=== PATIENT | female | born 1995 | race Caucasian/White ===

== ENCOUNTER → 2017-12-18 13:15 | Outpatient (CLI) | payer OTHER, SELFPAY ==
[2017-12-18 13:55] LABS: Cholesterol 170 mg/dL (200); Glucose 72 mg/dL (74-106); High Density Lipoprotein 45 mg/dL; Triglycerides 51 mg/dL; Very Low Density Lipoprotein 10 mg/dL (5-40)
[2017-12-24 15:39] LABS: HPV Reflexed? NOT INDICATED
[2018-01-01 13:15] LABS: HPV HC, High Risk Negative
== END ==
PROVIDERS: Visit Provider Obstetrics & Gynecology
DX: Z01.419 Encounter for gynecological examination (general) (routine) without abnormal findings (principal); Z13.228 Encounter for screening for other metabolic disorders; Z13.220 Encounter for screening for lipoid disorders
CPT/HCPCS: 80061; 82947; 87624; 88175; G0145

== ENCOUNTER 2020-05-19 18:03 | Emergency (ER) | payer BC, SELFPAY ==
[2020-05-19 18:05] VITALS: BP 143/109; PULSE 151; RESP 22; TEMP 36.8; O2SAT 99; BMI 27.4
--- NOTE | 2020-05-19 18:32 | CT_ITS ---
STUDY: CT ABDOMEN AND PELVIS WITHOUT CONTRAST REASON FOR EXAM: Female, 24 years old. Right flank pain RADIATION DOSAGE (If Supplied By Facility): CTDIvol = ( 8.55 ) mGy, DLP = ( 467.87 ) mGycm TECHNIQUE: Transaxial images were obtained from the dome of the diaphragm to the symphysis pubis without oral contrast, and without intravenous contrast. Sagittal and coronal images were reconstructed. Individualized dose optimization techniques were used for this CT. COMPARISON: June 12, 2011 FINDINGS: The lower pole of the kidney contains a 12 mm small staghorn calculus. There are no ureteral stones or hydronephrosis. Left collecting system is clear. Remainder of solid organs are intact. Ventricular peritoneal shunt tubing is located in the upper abdomen. There is no intestinal obstruction. There is inspissated stool in the rectum and sigmoid. There is limited spina bifida at S1 and S2. CT/Abdomen/Pelvis without Cont IMPRESSION: 1. Right renal lower pole nonobstructing calyceal 12 mm calculus. Urology referral is advised. 2. Colonic dysmotility. Electronically Signed: Norah Platt, at 21:33 EDT Tel , Service support ,
--- NOTE | 2020-05-19 18:32 | ED.VIS.GEN ---
History of Present Illness Chief Complaint: Complaint Informant: Patient, Family Onset: Days - 4 days Context: Gradual Onset Current Severity: Mild Maximum Severity: Moderate Narrative: Patient presents with right flank pain for the past 4 days. She describes it as a burning sensation around her abdomen. She has not noted any fever. She does have a history of spina bifida and self caths. She states her urine has not been cloudy or particularly strong odor. She denies history of kidney stones. She has not had diarrhea. She did have one episode of vomiting last night but states she think she got herself worked up worrying about her abdominal pain. She did have some leftover Bactrim at home that she took yesterday. - Past Medical History (1) Spina bifida Status: Chronic Past Medical History - Allergies and Home Meds Allergies/Adverse Reactions: Allergies azithromycin [From Zithromax] Allergy (Verified 05/19/20 18:05) Rash clindamycin [From Cleocin] Adverse Reaction (Verified 05/19/20 18:05) Other Primary Care Physician: Ivan Yin MD [STAFF PHYSICIAN] - Prior records reviewed: Yes Smoking Status: Never smoker Review of Systems General: Denies: Chills, Fever Eyes: Denies: Visual changes - bilaterally Cardiovascular: Denies: Chest pain Respiratory: Denies: Dyspnea, Cough Gastrointestinal: Reports: Abdominal pain, Nausea, Vomiting. Denies: Diarrhea Genitourinary: Reports: - - Self caths Musculoskeletal: Reports: Back pain - Right flank. Denies: Extremity Pain Skin: Denies: Rash Neurological: Denies: Headache Hematologic: Denies: Easy bruising, Easy bleeding Allergy: Denies: Uticaria Physical Exam Vital Signs/Narrative: Vital Signs Temp Pulse Resp BP Pulse Ox 05/19/20 18:05 98.3 F 151 H 22 H 143/109 H 99 Inital Vital Signs reviewed: Yes General: Well nourished, Well developed Head: Normocephalic ENT: Moist mucous membranes Neck: Supple Cardiovascular: Tachycardia - Heart rate in the 120s at the time of my examination. Respiratory: No distress, CTA bilaterally Abdomen: Soft, Tender - Mild right lower quadrant tenderness., Hypoactive bowel sounds Back: Negative for: CVA tenderness Skin: Normal color Neurological: Alert, Oriented x3 Psychological: Normal affect Diagnostic/Tx/Re-eval Impressions Abdomen/Pelvis CT 05/19/20 18:32 IMPRESSION: 1. Right renal lower pole nonobstructing calyceal 12 mm calculus. Urology referral is advised. 2. Colonic dysmotility. Electronically Signed: Norah Platt, at 21:33 EDT Tel , Service support , 05/19/20 18:32 Abdomen/Pelvis without Cont [CT] Stat Laboratory Results 05/19/20 05/19/20 05/19/20 19:34 20:10 20:10 WBC 7.6 RBC 4.57 Hgb 13.4 Hct 41.5 MCV 90.8 MCH 29.3 MCHC 32.3 RDW Std Deviation 41.0 RDW Coeff of Jude 12.5 Plt Count 290 MPV 11.3 Immature Gran % (Auto) 0.300 Neut % (Auto) 64.1 Lymph % (Auto) 22.9 [place] % (Auto) 10.9 H Eos % (Auto) 1.3 Baso % (Auto) 0.5 Absolute Neuts (auto) 4.9 Absolute Lymphs (auto) 1.74 Nucleated RBC % 0 Sodium 139 Potassium 4.1 Chloride 110 H Carbon Dioxide 24.0 Anion Gap 5 BUN 15 Creatinine 0.98 Estim Creat Clear Calc 90.06 Est GFR (MDRD) Af Amer 90 Est GFR (MDRD) Non-Af 74 BUN/Creatinine Ratio 15.3 Glucose 96 Calcium 9.3 Serum , Qual Urine Color Yellow Urine Clarity Sl. Cloudy Urine pH 6.0 Ur Specific [place] 1.015 Urine Protein 15 H Urine Glucose (UA) Normal Urine Ketones Negative Urine Occult Blood 150 H Urine Nitrite Negative Urine Bilirubin Negative Urine Urobilinogen Normal Ur Leukocyte Esterase 500 H Urine RBC 0 SEEN Urine WBC 25-50 SEEN Ur Squamous Epith Cells 0-5 SEEN Urine Bacteria 0 SEEN Urine Mucus 0 SEEN 05/19/20 20:10 WBC RBC Hgb Hct MCV MCH MCHC RDW Std Deviation RDW Coeff of Jude Plt Count MPV Immature Gran % (Auto) Neut % (Auto) Lymph % (Auto) [place] % (Auto) Eos % (Auto) Baso % (Auto) Absolute Neuts (auto) Absolute Lymphs (auto) Nucleated RBC % Sodium Potassium Chloride Carbon Dioxide Anion Gap BUN Creatinine Estim Creat Clear Calc Est GFR (MDRD) Af Amer Est GFR (MDRD) Non-Af BUN/Creatinine Ratio Glucose Calcium Serum , Qual NEGATIVE Urine Color Urine Clarity Urine pH Ur Specific [place] Urine Protein Urine Glucose (UA) Urine Ketones Urine Occult Blood Urine Nitrite Urine Bilirubin Urine Urobilinogen Ur Leukocyte Esterase Urine RBC Urine WBC Ur Squamous Epith Cells Urine Bacteria Urine Mucus - Medical Decision Making Patient was given IV fluids here. Test results discussed with patient and mother at bedside. Urine does show white cells but no bacteria. She is already taken 4 doses of Bactrim at home and this may give us a false negative urine. Urine culture will be sent. She does have evidence of a rather large kidney stone in the kidney. We discussed this. She will follow-up with urology as needed. She also has evidence of constipation with considerable stool on the right side of her abdomen. She has a bowel regimen that she follows at home secondary to her spina bifida and will do this. ED Disposition - Plan for ED Patient: Disposition: Home or Assisted Living Diagnosis: Right flank pain Instructions: ED Flank Pain Uncertain Cause Referrals: Doroteo Aguiar MD [STAFF PHYSICIAN] - As Needed
[2020-05-19 19:13] VITALS: BP 119/74; PULSE 78; RESP 15; TEMP 37.2; O2SAT 99
[2020-05-19 19:40] LABS: Bacteria 0 SEEN /hpf (None Seen); Mucous, Urine 0 SEEN /hpf (<or=2+); Red Blood Cells-Urine 0 SEEN /hpf (0-5)
[2020-05-19 19:43] LABS: Color, Urine Yellow (Yellow); Glucose, Dipstick Normal (Normal); Ketone-Dipstick Negative (Negative); Leukocyte Esterase-Dipstick 500 /ul (Negative); Nitrite-Dipstick Negative (Negative); Occult Blood-Urine 150 /ul (Negative); Protein-Dipstick 15 mg/dl (Negative); Specific Gravity, Urine 1.015 (1.002-1.030); Urine Bilirubin Dipstick Negative (Negative); Urine Clarity Sl. Cloudy (Clear); Urine Urobilinogen Normal (Normal)
[2020-05-19] MEDS: 0.9% Normal Saline 1,000 ML 150 ML IV (19:50)
[2020-05-19 20:00] VITALS: BP 130/99; PULSE 114; RESP 15; TEMP 37.2; O2SAT 100
[2020-05-19 20:14] LABS: Squamous Epithelial Cells - UA 0-5 SEEN /hpf (5-10); White Blood Cells 25-50 SEEN /hpf (0-5)
[2020-05-19 20:18] LABS: Absolute Lymphocyte Count 1.74 X10^3/uL (0.83-4.51); Absolute Neutrophil Count 4.9 X10^3/uL (2.0-7.7); Basophil# 0.04 X10^3/uL; Basophil% 0.5 % (0-1); Eosinophils% 1.3 % (0-5); Hematocrit 41.5 % (37-47); Hemoglobin 13.4 g/dL (12.0-15.0); Lymphocyte # 1.74 X10^3/ul (4.0); Lymphocyte % 22.9 % (19-41); Mean Corp Hgb Conc 32.3 g/dL (32-36); Mean Corpuscular Hgb 29.3 pg (27.0-32.0); Mean Corpuscular Volume 90.8 fL (81-99); Mean Platelet Vol. 11.3 fl (6.2-12.0); Monocyte# 0.83 X10^3/uL; Monocyte% 10.9 % (0-10); NRBC Flagged by Analyzer 0 % (0-5); Neutrophil # 4.86 X10^3/uL (2.7-7.7); Neutrophil % 64.1 % (47-70); Platelet Count 290 K/mm3 (150-450); RBC Distribution Width CV 12.5 % (11.6-14.6); Red Blood Count 4.57 M/mm3 (4.2-5.4); White Blood Count 7.6 K/mm3 (4.4-11.0)
[2020-05-19 20:28] LABS: Internal QC Validated? YES +Cl - CLEAR BKGD; Pregnancy, Serum, hCG Quali. NEGATIVE Negative
[2020-05-19 20:31] LABS: Anion Gap 5 (5-15); BUN 15 mg/dL (7-18); BUN/Creat Ratio 15.3 RATIO (10-20); Calcium,Total 9.3 mg/dL (8.5-10.1); Chloride 110 mmol/L (98-107); Creatinine, Serum 0.98 mg/dL (0.55-1.02); EST Glomerular Filtration Rate 74 mL/min (>60); Est Glom Filt Rate - Afr Amer 90 mL/min (>60); Estimated Creatinine Clearance 90.06 ml/min; Glucose 96 mg/dL (74-106); Potassium 4.1 mmol/L (3.5-5.1); Sodium Level 139 mmol/L (136-145)
[2020-05-19 21:00] VITALS: BP 131/102; PULSE 119; RESP 16; TEMP 37; O2SAT 100
[2020-05-19 21:55] VITALS: BP 135/90; PULSE 112; RESP 16; O2SAT 100
== END 2020-05-19 22:01 | disposition home or self-care (01) ==
PROVIDERS: Emergency Provider Emergency Medicine; PCP Family Medicine
DX: R10.9 Unspecified abdominal pain (principal)
CPT/HCPCS: 36415; 74176; 80048; 81001; 84703; 85025; 87086; 87088; 87186; 96360; 96361; 99285; J7030; A4216

== ENCOUNTER 2020-05-30 10:43 | Day surgery (SDC) | payer BC, SELFPAY ==
[2020-05-30] VITALS (7 sets, daily range): BP systolic 112–128; BP diastolic 65–78; PULSE 93–107; RESP 16; TEMP 36.3–37.1; O2SAT 98–100; BMI 27.5
[2020-05-30 11:17] LABS: Internal QC Validated? YES +Cl - CLEAR BKGD; Pregnancy, Urine Negative Negative
[2020-05-30] MEDS: Lactated Ringers 1,000 ML 100 ML IV (11:32)
[2020-05-30] MEDS: Cefazolin 2 GM in 0.9% Normal Saline 100 ML IV (14:24)
--- NOTE | 2020-05-30 14:31 | PCM.HP.STD ---
History of Present Illness Date of Admission: 05/30/20 Chief Complaint: Right kidney stone The patient is a 24 year old female with a history of spina bifida who presents with a right kidney stone plan for treatment of the stone with stent and shockwave lithotripsy Past Medical History Past Medical History (Chronic Problems): Chronic Problems Spina bifida (Chronic) Allergies azithromycin [From Zithromax] Allergy (Verified 05/19/20 18:05) Rash latex Allergy (Verified 05/23/20 13:22) Hives clindamycin [From Cleocin] Adverse Reaction (Verified 05/19/20 18:05) Other Home Medications: Ambulatory Orders Medication Instructions Recorded Bupropion HCl [Bupropion Xl] 300 mg PO DAILY 05/19/20 Smz/Tmp Ds [Bactrim Ds] 1 tab PO BID 05/19/20 Surgical History: no surgical history Smoking Status: Never smoker Tobacco Use: Non-smoker Review of Systems Constitutional: Denies: Chills, Fever, Weight Change HEENT: Denies: Head Aches, Sinus Congestion, Sinus Drainage Cardiovascular: Denies: Chest Pain, Palpitations Respiratory: Denies: Cough, Shortness of breath at rest, Sputum production Gastrointestinal: Denies: Abdominal Pain, Nausea, Vomiting Genitourinary: Denies: Dysuria Musculoskeletal: Denies: Joint Pain, Joint Tenderness Skin: Denies: Rash, Wounds Neurological: Denies: Numbness, Tingling, Focal weakness Psychiatric: Denies: Anxiety, Depression, Homicidal Ideations, Suicidal Ideations Hematologic/ Lymphatic: Denies: Easy Bruising, Easy Bleeding VTE Information - Inpt Only VTE Present on Admission: No VTE Mechan Device Prophylaxis: SCD's - Physical Exam Vitals/I&O's: Vital Signs Temp Pulse Resp BP Pulse Ox 97.7 F L 95 16 116/78 99 05/30/20 11:14 05/30/20 11:14 05/30/20 11:14 05/30/20 11:14 05/30/20 11:14 Oxygen Delivery Method Room Air Weight: 82.2 kg Body Mass Index (BMI) 27.5 General: Alert, Oriented x3, Cooperative HEENT: Atraumatic, PERRLA, EOMI, Normocephalic Neck: Supple, No JVD, Negative Carotid Bruits Lungs: Clear to auscultation, Normal air movement Cardiovascular: Regular rate, No murmurs Abdomen: Bowel Sounds Present, Soft, Non Tender Extremities: No edema, Capillary Refill Less than 3 Seconds Skin: No rashes, No breakdown Musculoskeletal: No Tenderness to Palpation of Joints or Extremities Neurological: Cranial nerves II-XII grossly intact Psych/Mental Status: Normal Affect, Appropriate Laboratory Results 05/30/20 11:00: Urine Test Negative Current Medications Acetaminophen (Tylenol) 650 mg PO Q4H PRN PRN PRN Reason: Pain Score 1-5/10 Lactated Ringer's () 1,000 mls @ 100 mls/hr IV .Q10H SARA Last Admin: 05/30/20 11:32 Dose: 100 mls/hr Documented by: Ketorolac Tromethamine (Toradol (Bkc)) 15 mg IV X1 ONE Stop: 05/30/20 14:31 Metoclopramide HCl (Reglan) 10 mg IV X1 PRN PRN Reason: NAUSEA/VOMITING Morphine Sulfate () 2 mg IV Q2H PRN PRN PRN Reason: Pain Score 6-10/10 Assessment/Plan Plan for treatment of the right kidney stone
--- NOTE | 2020-05-30 14:33 | PCM.DC.URO ---
Discharge Diet: No Restrictions, Light diet - advance as tolerated Discharge Activity: Return to Normal Activity, May Not Drive - for 2 days., May not drive while taking narcotic pain medications. Additional Activity Instructions:: Please be aware that pain medications may cause nausea. You should typically eat light foods as you take your pain medication. Pain medication may cause constipation, if this is a problem for you, please discuss with your doctor. Allergies/Adverse Reactions: Allergies azithromycin [From Zithromax] Allergy (Verified 05/19/20 18:05) Rash latex Allergy (Verified 05/23/20 13:22) Hives clindamycin [From Cleocin] Adverse Reaction (Verified 05/19/20 18:05) Other Medications to take at Discharge Bupropion HCl [Bupropion Xl] 300 mg PO DAILY 05/19/20 RX: Smz/Tmp Ds [Bactrim Ds] 1 tab PO BID 05/19/20 Primary Care Physician: Glenna Méndez PA-C [Primary Care Provider] - Test Results: Test results from this visit will be discussed in further detail at your follow-up appointment, if applicable. Please Follow Up With: Doroteo Aguiar MD When: please call to make an appointment.
--- NOTE | 2020-05-30 15:31 | PCM.OPRPT ---
Report of Operation Date of Procedure: 05/30/20 Pre-Operative Diagnosis: Right renal calculi Post-Operative Diagnosis: Same Surgery/Procedure Performed:: Cystoscopy, right retrograde pyelogram right stent placement and right extracorporeal shock wave lithotripsy Description of Surgical Findings:: 24-year-old female with a history of spina bifida was taken back to the operating room after smooth induction of anesthesia she was placed in dorsolithotomy position the urethra vaginally are prepped and draped in usual sterile fashion went of the bladder with a 21 [place] rigid cystourethroscope was able to identify the right ureteral orifice it was fairly patulous and open advanced a [place] catheter up into the right kidney performed a retrograde pyelogram he could see the stone in the lower pole the right kidney we then positioned the lithotripter table underneath the right kidney and proceeded with shockwave lithotripsy and delivered a total of 2500 shockwaves to the stone at a rate of 90/min total 2005 shock waves were delivered at the end of the procedure we did another retrograde pyelogram. The stones are broken up completely. Very soft looking stone. I then advanced a wire up into the kidney over the wire I then advanced a stent once the stent was in place and pulled the wire the stent: The kidney bladder good position we will see him next week to get the stent out with a cystoscopy. On retrograde pyelogram see the contrast going up to the kidney until the kidney nicely can see the stone the lower pole the kidney. Type of Anesthesia:: General Drains: stent right - Admit VTE Documentation VTE Present on Admission: No VTE Mechan Device Prophylaxis: SCD's
[2020-05-30] MEDS: Ketorolac 15 MG/ML Vial IV (16:15)
[2020-05-30] MEDS: HYDROcodone Bitartrate/Apap 5/325 Tablet PO (17:04)
== END 2020-05-30 17:57 | disposition home or self-care (01) ==
LOC: SDC 10:44 → AC 10:47
PROVIDERS: Anesthesiology; PCP Family Medicine; Referring Provider Urology; Visit Provider Urology
PROC: (CPT 50590; principal; 2020-05-30 12:55)
DX: N20.0 Calculus of kidney (principal); Q05.9 Spina bifida, unspecified; Z79.899 Other long term (current) drug therapy
CPT/HCPCS: 50590; 52332; 81025; 87635; G2023; J7120; C1769; C2617; J2405; U0003

== ENCOUNTER → 2020-09-13 13:43 | Outpatient (CLI) | payer BC, SELFPAY ==
[2020-05-30 11:14] VITALS: BMI 27.5
--- NOTE | 2020-09-13 14:05 | RAD_ITS ---
STUDY: X-RAY - ABDOMEN/PELVIS REASON FOR EXAM: Female, 25 years old. right sided flank pain TECHNIQUE: Single AP view of the abdomen / pelvis. COMPARISON: None. FINDINGS: Excluded lung bases. There is an unremarkable bowel gas pattern. Moderate fecal retention of the right more than left colon. There is no demonstrated free abdominal air. The visualized liver, spleen and kidneys are grossly normal in size and morphology. Normal soft tissue structures. Normal visualized osseous structures. RAD/Abdomen Single View IMPRESSION: Moderate fecal retention throughout the colon, right more than left. Electronically Signed: Jesus Maza MD ([place]) at 9:16 EST , Service support ,
== END ==
PROVIDERS: PCP Family Medicine; Referring Provider Urology; Visit Provider Urology
DX: N20.0 Calculus of kidney (principal)
CPT/HCPCS: 74018; 87086; 87088; 87186

== ENCOUNTER 2020-09-13 23:41 | Emergency (ER) | payer BC, SELFPAY ==
[2020-05-30 11:14] VITALS: BMI 27.5
[2020-09-13 23:43] VITALS: BP 156/102; PULSE 126; RESP 16; TEMP 36.2; O2SAT 99; BMI 25.0
[2020-09-14] MEDS: Morphine 4 MG/ML Syringe IM
--- NOTE | 2020-09-14 00:01 | ED.DCSUM_ITS ---
History of Present Illness Chief Complaint: Flank Pain Informant: Patient - Abdominal Pain/Flank Pain Onset: Days - 2 Context: Sudden Onset Timing: Continuous, Waxes and wanes Quality: Aching Location: Right Flank Current Severity: Severe Maximum Severity: Severe Worsened by: Nothing Relieved by: Nothing - Nausea/Vomiting/Emesis GI Symptom: Negative for: Nausea, Vomiting - Diarrhea/Melena/Hematochezia GI Symptom: Negative for: Diarrhea, Melena, Hematochezia Associated Symptoms: Negative for: Dysuria, Frequency, Hematuria, Urgency Narrative: Patient had sudden onset of relatively mild right flank pain 2 days ago it has progressively worsened and has been colicky, similar in quality to a kidney stone she had earlier in the year that she needed lithotripsy for. She sees Dr. Aguiar, she spoke with him earlier today and had a KUB and a urine culture, the interpretations of both of those are still pending. She comes in late tonight because her pain became significantly worse while at work despite taking ibuprofen earlier. She denies any fevers, chills, nausea, she has spina bifida and self catheterizes, has seen some sediment lately, and has altered sensation below the waist that is unchanged. Pain radiates down into her right groin now. - Past Medical History (1) Kidney stones Status: Chronic (2) Spina bifida Status: Chronic Past Medical History - Allergies and Home Meds Allergies/Adverse Reactions: Allergies azithromycin [From Zithromax] Allergy (Verified 09/13/20 23:45) Rash latex Allergy (Verified 09/13/20 23:45) Hives clindamycin [From Cleocin] Adverse Reaction (Verified 09/13/20 23:45) Other Primary Care Physician: Doroteo Aguiar MD [STAFF PHYSICIAN] - As soon as possible Surgical History: - - Lithotripsy Smoking Status: Never smoker Review of Systems General: Denies: Chills, Fever, Sweats Eyes: Denies: Visual changes - bilaterally, Diplopia ENT: Denies: Bilateral ear pain, Rhinorrhea, Sore throat Cardiovascular: Denies: Chest pain, Palpitations Respiratory: Denies: Dyspnea, Cough, Dyspnea on exertion Gastrointestinal: Reports: Abdominal pain. Denies: Nausea, Vomiting, Diarrhea, Melena, Hematochezia Genitourinary: Denies: Dysuria, Hematuria, Frequency Musculoskeletal: Reports: Back pain. Denies: Extremity Pain Skin: Denies: Rash, Wounds Neurological: Reports: Numbness - Chronic unchanged. Denies: Headache, Weakness Physical Exam Vital Signs/Narrative: Vital Signs Temp Pulse Resp BP Pulse Ox 09/13/20 23:43 97.1 F L 126 H 16 156/102 H 99 Inital Vital Signs reviewed: Yes General: Well nourished, Well developed, No Acute Distress - Well-appearing Head: Normocephalic, Atraumatic Eyes: Perrl, EOMI ENT: Moist mucous membranes, No rhinorrhea Neck: Supple, Nontender Cardiovascular: Regular rate, Regular rhythm, No murmurs, Tachycardia Respiratory: No distress, CTA bilaterally, Chest nontender Abdomen: Soft, Nontender, Nondistended, Normal bowel sounds Back: Nontender, Normal Inspection. Negative for: CVA tenderness Extremities: Nontender, No edema Skin: Normal color, No rash, No Trauma Neurological: Alert, Oriented x3, Cranial nerves II-XII grossly intact Psychological: Normal affect, Normal Mood Diagnostic/Tx/Re-eval - Medical Decision Making I reviewed the patient's KUB from earlier today, it has not been interpreted by radiology yet. 2 views on my interpretation shows a nonspecific bowel gas patte rn without free air, and what appears to be an 8.7 mm wide stone at or near the proximal right ureter. Certainly this would explain the patient's pain. Do not think she needs further emergent studies right now given all of this, we got her symptoms under control with IM morphine, followed by Toradol and some oral [place], and prescribed her [place] to use at home as needed. On reevaluation, her tachycardia is resolved and I suspect it was due to her pain. She will follow- up with her urologist, and we discussed reasons to return. ED Disposition - Plan for ED Patient: Disposition: Home or Assisted Living Diagnosis: Ureterolithiasis, Renal colic on right side Instructions: ED Renal Stone w Colic Prescriptions: Hydrocodone Bitart/Apap 5-325 [[place] 5MG-325MG] 1 tab PO Q4H PRN PRN 3 Days #15 tab PRN Reason: Pain Prescription Printed Referrals: Doroteo Aguiar MD [STAFF PHYSICIAN] - As soon as possible
[2020-09-14] MEDS: HYDROcodone Bitartrate/Apap 5/325 Tablet PO (01:09)
[2020-09-14] MEDS: Ketorolac 30 MG/ML Syringe IM (01:10)
[2020-09-14 01:50] VITALS: RESP 16
== END 2020-09-14 01:51 | disposition home or self-care (01) ==
LOC: ED 09-14 00:34
PROVIDERS: Emergency Provider Emergency Medicine; PCP Family Medicine
DX: N20.1 Calculus of ureter (principal)
CPT/HCPCS: 96372; 99283

== ENCOUNTER 2020-09-17 12:53 | Inpatient (IN) | payer BC, SELFPAY ==
[2020-09-17] VITALS (12 sets, daily range): BP systolic 92–134; BP diastolic 64–91; PULSE 113–148; RESP 16–20; TEMP 36.2–37.3; O2SAT 95–100; BMI 24.7
--- NOTE | 2020-09-17 13:26 | ED.VIS.GEN ---
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 She does get frequent urinary tract infections. Old records were reviewed. May of this year she had a scan which revealed a 12 mm renal calculi inferior pole. She had a KUB on September 13 which revealed an 8 mm stone on the right. She presents with nausea. She denies fever or chills. She denies cardiac or respiratory symptoms. She states she is presently on her menstrual cycle. She did have a documented temperature of 100.7 ?F on Thursday. She states she does not feel well. She has no other complaints. Prior similar symptoms: Yes Recent Illness/Hospitalization: Yes - Past Medical History (1) History of hydrocephalus as a child Status: Acute (2) Kidney stones Status: Chronic (3) Spina bifida Status: Chronic Past Medical History - Allergies and Home Meds Allergies/Adverse Reactions: Allergies azithromycin [From Zithromax] Allergy (Verified 09/17/20 12:54) Rash latex Allergy (Verified 09/17/20 12:54) Hives clindamycin [From Cleocin] Adverse Reaction (Verified 09/17/20 12:54) Other Primary Care Physician: Glenna Méndez PA-C [Primary Care Provider] - Prior records reviewed: Yes Surgical History: - - Lithotripsy, PHARMACEUTICAL LABORATORY TECHNICIAN shunt, tracheostomy and surgery for spina bifida Lives: Alone Smoking Status: Never smoker Alcohol: None Drugs: None Review of Systems General: Reports: Chills, Fever, Malaise. Denies: Subjective, Sweats, Weight loss ENT: Denies: Rhinorrhea, Sore throat Cardiovascular: Denies: Chest pain, Palpitations Respiratory: Denies: Dyspnea, Cough, Dyspnea on exertion Gastrointestinal: Reports: Nausea. Denies: Abdominal pain, Vomiting, Diarrhea Genitourinary: Reports: - - Patient self caths because of spina bifida. Denies: Dysuria, Hematuria, Frequency Musculoskeletal: Reports: Back pain. Denies: Myalgias, Arthralgias, Neck pain Skin: Denies: Rash, Wounds Neurological: Denies: Headache, Weakness Hematologic: Denies: Easy bruising, Easy bleeding Physical Exam Vital Signs/Narrative: Vital Signs Temp Pulse Resp BP Pulse Ox 09/17/20 12:55 97.4 F L 148 H 17 134/91 H 95 Inital Vital Signs reviewed: Yes General: Well nourished, Well developed, No Acute Distress Head: Normocephalic, Atraumatic Eyes: Perrl, EOMI. Negative for: Pale conjunctiva, Scleral icterus ENT: Moist mucous membranes, No rhinorrhea Neck: Supple, Nontender, No lymphadenopathy, No JVD, - - PHARMACE[employer]ORATORY TECHNICIAN shunt is palpable right anterior neck Cardiovascular: Regular rhythm, No murmurs, Tachycardia Respiratory: No distress, CTA bilaterally Abdomen: Soft, Nontender, Nondistended, Normal bowel sounds Rectal: Deferred Back: Nontender, Normal Inspection Extremities: Nontender, No edema Skin: Normal color, No rash Neurological: Alert, Oriented x3, Cranial nerves II-XII grossly intact Psychological: Normal affect Diagnostic/Tx/Re-eval 09/17/20 15:10 Abdomen/Pelvis without Cont [CT] Stat Laboratory Results 09/17/20 09/17/20 09/17/20 13:10 13:40 13:40 WBC RBC Hgb Hct MCV MCH MCHC RDW Std Deviation RDW Coeff of Jude Plt Count MPV Immature Gran % (Auto) Neut % (Auto) Lymph % (Auto) [place] % (Auto) Eos % (Auto) Baso % (Auto) Absolute Neuts (auto) Absolute Lymphs (auto) Nucleated RBC % Sodium 136 Potassium 3.5 Chloride 101 Carbon Dioxide 24.0 Anion Gap 11 BUN 13 Creatinine 1.14 H Estim Creat Clear Calc 76.76 Est GFR (MDRD) Af Amer 75 Est GFR (MDRD) Non-Af 62 BUN/Creatinine Ratio 11.4 Glucose 100 Calcium 9.9 Serum , Qual NEGATIVE Urine Color Yellow Urine Clarity Turbid Urine pH 6.0 Ur Specific [place] 1.020 Urine Protein 100 H Urine Glucose (UA) Normal Urine Ketones 150 H Urine Occult Blood 250 H Urine Nitrite Negative Urine Bilirubin 1 H Urine Urobilinogen 1 H Ur Leukocyte Esterase 500 H Urine RBC 50-100 SEEN Urine WBC 50-100 SEEN Ur Squamous Epith Cells 0-5 SEEN Urine Bacteria 3+ Urine Mucus 0 SEEN 09/17/20 13:40 WBC 13.5 H RBC 5.11 Hgb 14.7 Hct 45.5 MCV 89.0 MCH 28.8 MCHC 32.3 RDW Std Deviation 42.4 RDW Coeff of Jude 12.9 Plt Count 305 MPV 11.3 Immature Gran % (Auto) 0.400 Neut % (Auto) 84.6 H Lymph % (Auto) 5.8 L [place] % (Auto) 8.4 Eos % (Auto) 0.7 Baso % (Auto) 0.1 Absolute Neuts (auto) 11.4 H Absolute Lymphs (auto) 0.78 L Nucleated RBC % 0 Sodium Potassium Chloride Carbon Dioxide Anion Gap BUN Creatinine Estim Creat Clear Calc Est GFR (MDRD) Af Amer Est GFR (MDRD) Non-Af BUN/Creatinine Ratio Glucose Calcium Serum , Qual Urine Color Urine Clarity Urine pH Ur Specific [place] Urine Protein Urine Glucose (UA) Urine Ketones Urine Occult Blood Urine Nitrite Urine Bilirubin Urine Urobilinogen Ur Leukocyte Esterase Urine RBC Urine WBC Ur Squamous Epith Cells Urine Bacteria Urine Mucus Urine is consistent with infection with 50-100 RBCs and 50-100 WBCs with 3+ bacteria. KUB was obtained on 111 and I agree there is a stone. Measured the stone in its 10.4 x 16 mm and appears to be intrarenal. Because patient having significant pain will obtain a CT to see if there is obstruction especially since she has an infection. Received 2 g of Rocephin IV piggyback. Lactate was ordered as well as blood cultures to evaluate for severe sepsis. - Medical Decision Making Patient urine appears turbid. Concerned she may have an infection. CBC BMP was obtained. KUB was obtained to see if there has been movement of the stone. T of the abdomen and pelvis without contrast reveals significant hydronephrosis due to a very proximal 12.4 x 6.0 ureteral stone. Since she has pain with obstruction and infection urology was contacted. He will admit patient to his service. Her lactate is pending. If lactate greater than [address] Dr. Muller was giving orders to nurse for admission. He plans on taken to surgery to have a stent placed. ED Disposition - Plan for ED Patient: Disposition: Acute Care Hospital [facility] Diagnosis: Hydronephrosis with urinary obstruction due to ureteral calculus, Urinary tract infection, Sepsis Referrals: Glenna Méndez PA-C [Primary Care Provider] -
[2020-09-17 13:30] LABS: Mucous, Urine 0 SEEN /hpf (<or=2+)
[2020-09-17 13:36] LABS: Color, Urine Yellow (Yellow); Glucose, Dipstick Normal (Normal); Leukocyte Esterase-Dipstick 500 /ul (Negative); Nitrite-Dipstick Negative (Negative); Occult Blood-Urine 250 /ul (Negative); Protein-Dipstick 100 mg/dl (Negative); Urine Clarity Turbid (Clear); Urine Urobilinogen 1 mg/dl (Normal)
[2020-09-17 13:50] LABS: Urine Bilirubin Dipstick 1 mg/dL (Negative)
[2020-09-17 13:51] LABS: Absolute Lymphocyte Count 0.78 X10^3/uL (0.83-4.51); Absolute Neutrophil Count 11.4 X10^3/uL (2.0-7.7); Basophil# 0.02 X10^3/uL; Basophil% 0.1 % (0-1); Eosinophils% 0.7 % (0-5); Hematocrit 45.5 % (37-47); Hemoglobin 14.7 g/dL (12.0-15.0); Lymphocyte # 0.78 X10^3/ul (4.0); Lymphocyte % 5.8 % (19-41); Mean Corp Hgb Conc 32.3 g/dL (32-36); Mean Corpuscular Hgb 28.8 pg (27.0-32.0); Mean Platelet Vol. 11.3 fl (6.2-12.0); Monocyte# 1.14 X10^3/uL; Monocyte% 8.4 % (0-10); NRBC Flagged by Analyzer 0 % (0-5); Neutrophil # 11.44 X10^3/uL (2.7-7.7); Neutrophil % 84.6 % (47-70); Platelet Count 305 K/mm3 (150-450); RBC Distribution Width CV 12.9 % (11.6-14.6); RBC Distribution Width SD 42.4 fl (35.1-43.9); Red Blood Count 5.11 M/mm3 (4.2-5.4); White Blood Count 13.5 K/mm3 (4.4-11.0)
[2020-09-17 13:53] LABS: Ketone-Dipstick 150 mg/dl (Negative)
[2020-09-17] MEDS: 0.9% Normal Saline 1,000 ML 250 ML IV (13:56)
[2020-09-17] MEDS: Ondansetron 4 MG/2 ML Vial IV (13:57)
[2020-09-17] MEDS: Ketorolac 15 MG/ML Vial IV (13:57)
[2020-09-17 13:59] LABS: Bacteria 3+ /hpf (None Seen); Red Blood Cells-Urine 50-100 SEEN /hpf (0-5); Squamous Epithelial Cells - UA 0-5 SEEN /hpf (5-10); White Blood Cells 50-100 SEEN /hpf (0-5)
[2020-09-17 14:05] LABS: Anion Gap 11 (5-15); BUN 13 mg/dL (7-18); BUN/Creat Ratio 11.4 RATIO (10-20); Calcium,Total 9.9 mg/dL (8.5-10.1); Chloride 101 mmol/L (98-107); Creatinine, Serum 1.14 mg/dL (0.55-1.02); EST Glomerular Filtration Rate 62 mL/min (>60); Est Glom Filt Rate - Afr Amer 75 mL/min (>60); Estimated Creatinine Clearance 76.76 ml/min; Glucose 100 mg/dL (74-106); Potassium 3.5 mmol/L (3.5-5.1); Sodium Level 136 mmol/L (136-145)
[2020-09-17 14:28] LABS: Internal QC Validated? YES +Cl - CLEAR BKGD; Pregnancy, Serum, hCG Quali. NEGATIVE Negative
--- NOTE | 2020-09-17 15:10 | CT_ITS ---
STUDY: CT ABDOMEN AND PELVIS WITHOUT CONTRAST REASON FOR EXAM: Female, 25 years old. RIGHT FLANK PAIN -- KNOWN KIDNEY STONE -- HX-SPINA BIFIDA, KIDNEY STONE RADIATION DOSAGE (If Supplied By Facility): CTDIvol = ( 6.64 ) mGy, DLP = ( 374.76 ) mGycm TECHNIQUE: Transaxial images were obtained from the dome of the diaphragm to the symphysis pubis without oral contrast, and without intravenous contrast. Sagittal and coronal images were reconstructed. Individualized dose optimization techniques were used for this CT. COMPARISON: Comparison is made with prior study dated 05/19/2020. FINDINGS: Patchy right lower lobe infiltrate. The visualized portions of the heart are within normal limits. Normal liver. Normal gallbladder and extrahepatic biliary system. Normal spleen. Normal pancreas. Normal bilateral adrenal glands. Mild to moderate degree of right hydronephrosis due to a 1 cm x 1.1 cm calculus in the mid portion of the right ureter. Normal left kidney. A PEG tube is seen. Normal small intestine. Large amount of fecal material is seen in the colon. The appendix is visualized and appears normal. Normal abdominal aorta. Normal inferior vena cava. Normal retroperitoneum. Normal urinary bladder. Normal abdominal wall. Stable limited spina bifida at the S1 and S2 levels. Mild levoscoliosis. CT/Abdomen/Pelvis without Cont IMPRESSION: 1 cm x 1.1 cm, greatest in the midportion of the right ureter causing moderate degree of right hydronephrosis. Patchy infiltrate in the right lower lobe. Electronically Signed: Jose Stephenson, at 15:45 EST , Service support ,
--- NOTE | 2020-09-17 15:46 | NURSING ---
OR THEN MED SURG JUNIOR HYRONEPHROSIS DUE TO OBSTRUCTING PROXIMAL STONE, 12 MM, UTI
--- NOTE | 2020-09-17 15:49 | NURSING ---
DR PACHECO IN ER
--- NOTE | 2020-09-17 16:09 | HP.PCM_ITS ---
Problem List (1) Kidney stones Status: Chronic History of Present Illness Date of Admission: 09/17/20 Chief Complaint: Right obstructing kidney stone The patient is a 25 year old female presented to the emergency room with right flank pain CAT scan was done demonstrate obstructing kidney stone she has an active urinary tract infection today we will take her back to surgery for cystoscopy retrograde and right stent placement we will continue treating her with IV antibiotics. Past Medical History Past Medical History (Chronic Problems): Chronic Problems Spina bifida (Chronic) Kidney stones (Chronic) Allergies azithromycin [From Zithromax] Allergy (Verified 09/17/20 12:54) Rash latex Allergy (Verified 09/17/20 12:54) Hives clindamycin [From Cleocin] Adverse Reaction (Verified 09/17/20 12:54) Other Home Medications: Ambulatory Orders Medication Instructions Recorded Bupropion HCl [Bupropion Xl] 300 mg PO DAILY 05/19/20 Oxybutynin Chloride [Ditropan Xl] 10 mg PO DAILY 09/13/20 Ciprofloxacin [Cipro] 500 mg PO BID 09/17/20 Hydrocodone Bitart/Apap 5-325 1 tab PO Q4H PRN PRN 09/17/20 [[place] 5MG-325MG] Surgical History: - - Lithotripsy, 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, tracheostomy and surgery for spina bifida Lives: Alone Smoking Status: Never smoker Alcohol: None Drugs: None Review of Systems Constitutional: Denies: Chills, Fever, Weight Change HEENT: Denies: Head Aches, Sinus Congestion, Sinus Drainage Cardiovascular: Denies: Chest Pain, Palpitations Respiratory: Denies: Cough, Shortness of breath at rest, Sputum production Gastrointestinal: Denies: Abdominal Pain, Nausea, Vomiting Genitourinary: Denies: Dysuria Musculoskeletal: Denies: Joint Pain, Joint Tenderness Skin: Denies: Rash, Wounds Neurological: Denies: Numbness, Tingling, Focal weakness Psychiatric: Denies: Anxiety, Depression, Homicidal Ideations, Suicidal Ideations Hematologic/ Lymphatic: Denies: Easy Bruising, Easy Bleeding VTE Information - Inpt Only VTE Present on Admission: No Patient Problems: Active and Suspected Problems History of hydrocephalus as a child (Acute) Hydronephrosis with urinary obstruction due to ureteral calculus (Acute) Urinary tract infection (Acute) Sepsis (Acute) - Physical Exam Vitals/I&O's: Vital Signs Temp Pulse Resp BP Pulse Ox 98.9 F 127 H 20 H 125/82 H 99 09/17/20 15:50 09/17/20 15:50 09/17/20 15:50 09/17/20 15:50 09/17/20 15:50 Oxygen Delivery Method Room Air Weight: 73.8 kg Body Mass Index (BMI) 24.7 Intake and Output for Last 24 Hours 09/15/20 09/16/20 09/17/20 23:59 23:59 23:59 Intake Total 470.83 / 470.83 Balance 470.83 / 470.83 General: Alert, Oriented x3, Cooperative HEENT: Atraumatic, PERRLA, EOMI, Normocephalic Neck: Supple, No JVD, Negative Carotid Bruits Lungs: Clear to auscultation, Normal air movement Cardiovascular: Regular rate, No murmurs Abdomen: Bowel Sounds Present, Soft, Non Tender Extremities: No edema, Capillary Refill Less than 3 Seconds Skin: No rashes, No breakdown Musculoskeletal: No Tenderness to Palpation of Joints or Extremities Neurological: Cranial nerves II-XII grossly intact Psych/Mental Status: Normal Affect, Appropriate Laboratory Results 09/17/20 13:10: Urine Color Yellow, Urine Clarity Turbid, Urine pH 6.0, Ur Specific [place] 1.020, Urine Protein 100 H, Urine Glucose (UA) Normal, Urine Ketones 150 H, Urine Occult Blood 250 H, Urine Nitrite Negative, Urine Bilirubin 1 H, Urine Urobilinogen 1 H, Ur Leukocyte Esterase 500 H, Urine RBC 50-100 SEEN, Urine WBC 50-100 SEEN, Ur Squamous Epith Cells 0-5 SEEN, Urine Bacteria 3+, Urine Mucus 0 SEEN 09/17/20 13:40: Serum , Qual NEGATIVE 09/17/20 13:40: Sodium 136, Potassium 3.5, Chloride 101, Carbon Dioxide 24.0, Anion Gap 11, BUN 13, Creatinine 1.14 H, Estim Creat Clear Calc 76.76, Est GFR (MDRD) Af Amer 75, Est GFR (MDRD) Non-Af 62, BUN/Creatinine Ratio 11.4, Glucose 100, Calcium 9.9 09/17/20 13:40: WBC 13.5 H, RBC 5.11, Hgb 14.7, Hct 45.5, MCV 89.0, MCH 28.8, MCHC 32.3, RDW Std Deviation 42.4, RDW Coeff of Jude 12.9, Plt Count 305, MPV 11.3, Immature Gran % (Auto) 0.400, Neut % (Auto) 84.6 H, Lymph % (Auto) 5.8 L, [place] % (Auto) 8.4, Eos % (Auto) 0.7, Baso % (Auto) 0.1, Absolute Neuts (auto) 11.4 H, Absolute Lymphs (auto) 0.78 L, Nucleated RBC % 0 09/17/20 14:50: Lactic Acid Cancelled Current Medications Sodium Chloride () 1,000 mls @ 250 mls/hr IV .Q4H SARA Last Infusion: 09/17/20 15:49 Dose: 0 mls/hr Documented by: Assessment/Plan All Active Problems History of hydrocephalus as a child (Acute) Hydronephrosis with urinary obstruction due to ureteral calculus (Acute) Urinary tract infection (Acute) Sepsis (Acute) 25-year-old female obstructing stone in the proximal right ureter plan for cystoscopy retrograde and stent placement on the right side continue with IV antibiotics.
[2020-09-17] MEDS: 0.9% Normal Saline 1,000 ML 100 ML IV ×2 (16:15→21:01)
--- NOTE | 2020-09-17 16:43 | PCM.OPRPT ---
Problem List (1) Kidney stones Status: Chronic Report of Operation Date of Procedure: 09/17/20 Pre-Operative Diagnosis: Right proximal ureteral calculi with obstruction Post-Operative Diagnosis: Same Surgery/Procedure Performed:: Cystoscopy right retrograde pyelogram interpretation fluoroscopic images, right stent placement Description of Surgical Findings:: 25-year-old female presented to the emergency room with right flank pain she was taken back to the operating room and underwent heavy sedation, she was placed in dorsolithotomy position. The urethra vaginal area prepped and draped in usual sterile fashion. I went into the bladder with a 21 [place] rigid cystourethroscope. Identified the right ureteral orifice it was a patulous and wide open ureteral orifice from apparent reimplantation as a child she she has spina bifida. I was able to cannulate the orifice and advanced a [place] catheter up into the right ureter performed a retrograde pyelogram see contrast going up and then contrast up the ureter, blocked by a stone I then, I could see the stone on x-ray. I then put a wire up to the right kidney over the wire I placed a stent it was a 6 [place] by 26 cm stent. Left the string of the stent but cut it short to make sure she does not extracted early. We will keep her in the hospital for IV antibiotics until her infection is cleared probably bring her back for shockwave lithotripsy. After the stent placement should be taken back to PACU in good condition. Type of Anesthesia:: General Drains: stent right - Admit VTE Documentation VTE Present on Admission: No VTE Mechan Device Prophylaxis: SCD's
[2020-09-17 18:20] LABS: Lactic Acid 0.8 mmol/L (0.4-1.9)
[2020-09-17] MEDS: Ceftriaxone 1 GM/50 ML BAG IV (21:05)
[2020-09-17] MEDS: HYDROcodone Bitartrate/Apap 5/325 Tablet PO (23:36)
[2020-09-18] VITALS (7 sets, daily range): BP systolic 117–137; BP diastolic 79–84; PULSE 83–120; RESP 16–18; TEMP 36.4–36.8; O2SAT 98–100
[2020-09-18 06:03] LABS: Hematocrit 35.7 % (37-47); Hemoglobin 11.7 g/dL (12.0-15.0); Mean Corp Hgb Conc 32.8 g/dL (32-36); Mean Corpuscular Volume 88.4 fL (81-99); Mean Platelet Vol. 11.7 fl (6.2-12.0); Platelet Count 240 K/mm3 (150-450); RBC Distribution Width CV 13.1 % (11.6-14.6); RBC Distribution Width SD 42.7 fl (35.1-43.9); Red Blood Count 4.04 M/mm3 (4.2-5.4); White Blood Count 7.6 K/mm3 (4.4-11.0)
[2020-09-18 06:33] LABS: Anion Gap 7 (5-15); BUN 15 mg/dL (7-18); BUN/Creat Ratio 23.2 RATIO (10-20); Calcium,Total 8.2 mg/dL (8.5-10.1); Chloride 107 mmol/L (98-107); Creatinine, Serum 0.65 mg/dL (0.55-1.02); EST Glomerular Filtration Rate 119 mL/min (>60); Est Glom Filt Rate - Afr Amer 145 mL/min (>60); Estimated Creatinine Clearance 134.63 ml/min; Glucose 160 mg/dL (74-106); Potassium 4.4 mmol/L (3.5-5.1); Sodium Level 137 mmol/L (136-145)
[2020-09-18] MEDS: 0.9% Normal Saline 1,000 ML 100 ML IV ×2 (06:34→16:40)
--- NOTE | 2020-09-18 07:14 | PCM.PROGNOTE ---
Patient Problems: Active and Suspected Problems History of hydrocephalus as a child (Acute) Hydronephrosis with urinary obstruction due to ureteral calculus (Acute) Urinary tract infection (Acute) Sepsis (Acute) Subjective: Status post stent placement on the right side for obstructing stone clinically looking better, continue with IV antibiotics. We will add her onto the schedule for tomorrow for right ESWL. - Physical Exam Vitals/I&O's: Vital Signs Temp Pulse Resp BP Pulse Ox 97.6 F L 90 18 123/79 H 98 09/18/20 05:00 09/18/20 05:00 09/18/20 05:00 09/18/20 05:00 09/18/20 05:00 Oxygen Delivery Method Room Air Weight: 73.8 kg Body Mass Index (BMI) 24.7 Intake and Output for Last 24 Hours 09/16/20 09/17/20 09/18/20 23:59 23:59 23:59 Intake Total 1047.50 / 1047.50 1355 / 1355 Output Total 1150 / 1150 Balance 1047.50 / 297.50 205 / 205 General: Alert, Oriented x3, Cooperative HEENT: Atraumatic, PERRLA, EOMI, Normocephalic Neck: Supple, No JVD, Negative Carotid Bruits Lungs: Clear to auscultation, Normal air movement Cardiovascular: Regular rate, No murmurs Abdomen: Bowel Sounds Present, Soft, Non Tender Extremities: No edema, Capillary Refill Less than 3 Seconds Skin: No rashes, No breakdown Musculoskeletal: No Tenderness to Palpation of Joints or Extremities Neurological: Cranial nerves II-XII grossly intact Psych/Mental Status: Normal Affect, Appropriate Laboratory Results 09/17/20 13:10: Urine Color Yellow, Urine Clarity Turbid, Urine pH 6.0, Ur Specific [place] 1.020, Urine Protein 100 H, Urine Glucose (UA) Normal, Urine Ketones 150 H, Urine Occult Blood 250 H, Urine Nitrite Negative, Urine Bilirubin 1 H, Urine Urobilinogen 1 H, Ur Leukocyte Esterase 500 H, Urine RBC 50-100 SEEN, Urine WBC 50-100 SEEN, Ur Squamous Epith Cells 0-5 SEEN, Urine Bacteria 3+, Urine Mucus 0 SEEN 09/17/20 13:40: Serum , Qual NEGATIVE 09/17/20 13:40: Sodium 136, Potassium 3.5, Chloride 101, Carbon Dioxide 24.0, Anion Gap 11, BUN 13, Creatinine 1.14 H, Estim Creat Clear Calc 76.76, Est GFR (MDRD) Af Amer 75, Est GFR (MDRD) Non-Af 62, BUN/Creatinine Ratio 11.4, Glucose 100, Calcium 9.9 09/17/20 13:40: WBC 13.5 H, RBC 5.11, Hgb 14.7, Hct 45.5, MCV 89.0, MCH 28.8, MCHC 32.3, RDW Std Deviation 42.4, RDW Coeff of Jude 12.9, Plt Count 305, MPV 11.3, Immature Gran % (Auto) 0.400, Neut % (Auto) 84.6 H, Lymph % (Auto) 5.8 L, [place] % (Auto) 8.4, Eos % (Auto) 0.7, Baso % (Auto) 0.1, Absolute Neuts (auto) 11.4 H, Absolute Lymphs (auto) 0.78 L, Nucleated RBC % 0 09/17/20 14:50: Lactic Acid Cancelled 09/17/20 17:39: Lactic Acid 0.8 09/18/20 05:15: WBC 7.6, RBC 4.04 L, Hgb 11.7 L, Hct 35.7 L, MCV 88.4, MCH 29.0, MCHC 32.8, RDW Std Deviation 42.7, RDW Coeff of Jude 13.1, Plt Count 240, MPV 11.7 09/18/20 05:15: Sodium 137, Potassium 4.4, Chloride 107, Carbon Dioxide 23.0, Anion Gap 7, BUN 15, Creatinine 0.65, Estim Creat Clear Calc 134.63, Est GFR (MDRD) Af Amer 145, Est GFR (MDRD) Non-Af 119, BUN/Creatinine Ratio 23.2 H, Glucose 160 H, Calcium 8.2 L Current Medications Acetaminophen (Acetaminophen 325 Mg Tablet) 325 - 650 mg PO Q4H PRN PRN PRN Reason: pain score 1-10/fever/headache Hydrocodone Bitart/Acetaminophen (Hydrocodone Bitartrate/Apap 5/325 Tablet) 1 - 2 tablet PO Q6H PRN PRN PRN Reason: Pain Score 1-5 Last Admin: 09/17/20 23:36 Dose: 2 tablet Documented by: Bupropion HCl (Bupropion (Xl) 300 Mg Tablet.Xl) 300 mg PO DAILY [facility] Sodium Chloride () 1,000 mls @ 100 mls/hr IV .Q10H [facility] Last Admin: 09/18/20 06:34 Dose: 100 mls/hr Documented by: Ceftriaxone Sodium (Rocephin) 1 gm in 50 mls @ 100 mls/hr IV Q12 [facility] Last Infusion: 09/17/20 21:35 Dose: Infused Documented by: Sodium Chloride () 250 mls @ 15 mls/hr IV .[id number] PRN PRN Reason: Saline Flush Sodium Chloride () 250 mls @ 15 mls/hr IV .[id number] PRN PRN Reason: Additional IVPB Infusion Ketorolac Tromethamine (Ketorolac 15 Mg/Ml Vial) 15 mg IV Q6H PRN PRN PRN Reason: Pain Score 1-10 Stop: 09/19/20 16:11 Morphine Sulfate (Morphine 2 Mg/Ml Syringe) 2 mg IV Q2H PRN PRN PRN Reason: Pain Score 6-10 Sodium Chloride (0.9% Saline Lock 10 Ml Syringe) 10 - 40 ml IV UD PRN PRN Reason: SALINE FLUSH Sodium Chloride (0.9% Saline Lock 10 Ml Syringe) 10 - 40 ml IV UD PRN PRN Reason: SALINE FLUSH Tolterodine Tartrate (Tolterodine Tartrate 2 Mg Cap.Sa) 2 mg PO DAILY [facility] Medical Necessity - Tobacco Use Smoking Status: Never smoker Assessment/Plan All Active Problems History of hydrocephalus as a child (Acute) Hydronephrosis with urinary obstruction due to ureteral calculus (Acute) Urinary tract infection (Acute) Sepsis (Acute) Plan for right ESWL n.p.o. at midnight obtain consent continue IV antibiotics clinically stable.
[2020-09-18] MEDS: Ceftriaxone 1 GM/50 ML BAG IV ×2 (10:03→21:12)
[2020-09-18] MEDS: Tolterodine Tartrate 2 MG CAP.SA PO (10:03)
[2020-09-18] MEDS: buPROPion (XL) 300 MG TABLET.XL PO (10:03)
--- NOTE | 2020-09-18 14:03 | CASEMGMT ---
RN CLEMENT Face to Face with patient for initial transition planning/care coordination assessment. RN CM introduced self and role at [facility]. Patient lying in bed, alert and oriented. Patient willing to participate in assessment and is able to answer all questions appropriately. Care providers, pharmacy, and demographics verified. Patient wishes to discharge home, denies need for home health at this time. Patient states she has no further needs or concerns at this time. CM to follow for discharge planning needs that may arise. PCP: Glenna DURANT Specialists: none Preferred Pharmacy: [facility] Insurance: [place] Prescription Benefit: yes Living Will/HPOA: none LNOK: Parents Living Arrangements: Patient lives alone in a 2nd story apartment. Patient states she is independent and able to ambulate stairs. Transportation: Self/parents DME/HHC: Patient denies DME or previous HHC. Disposition Plan: Patient to discharge home with family support and follow-up plans in place. Dana ZAMORA, RN, CM
[2020-09-18] MEDS: Docusate Sodium 100 MG Capsule PO (16:44)
[2020-09-18] MEDS: MELATONIN 10 MG TABLET PO (21:12)
[2020-09-19] VITALS (8 sets, daily range): BP systolic 117–140; BP diastolic 67–92; PULSE 71–109; RESP 16–18; TEMP 36.2–36.9; O2SAT 95–100; BMI 24.7
[2020-09-19] MEDS: 0.9% Normal Saline 1,000 ML 100 ML IV ×2 (02:58→13:29)
[2020-09-19 07:59] LABS: Anion Gap 5 (5-15); BUN 13 mg/dL (7-18); BUN/Creat Ratio 23.7 RATIO (10-20); Calcium,Total 8.2 mg/dL (8.5-10.1); Chloride 114 mmol/L (98-107); Creatinine, Serum 0.55 mg/dL (0.55-1.02); EST Glomerular Filtration Rate 145 mL/min (>60); Est Glom Filt Rate - Afr Amer 175 mL/min (>60); Glucose 101 mg/dL (74-106); Potassium 3.7 mmol/L (3.5-5.1); Sodium Level 139 mmol/L (136-145)
[2020-09-19 08:26] LABS: Hematocrit 35.7 % (37-47); Hemoglobin 11.4 g/dL (12.0-15.0); Mean Corp Hgb Conc 31.9 g/dL (32-36); Mean Corpuscular Hgb 28.6 pg (27.0-32.0); Mean Corpuscular Volume 89.5 fL (81-99); Mean Platelet Vol. 10.7 fl (6.2-12.0); Platelet Count 297 K/mm3 (150-450); RBC Distribution Width CV 13.4 % (11.6-14.6); RBC Distribution Width SD 44.2 fl (35.1-43.9); Red Blood Count 3.99 M/mm3 (4.2-5.4); White Blood Count 8.9 K/mm3 (4.4-11.0)
[2020-09-19] MEDS: Ceftriaxone 1 GM/50 ML BAG IV (09:48)
[2020-09-19] MEDS: Tolterodine Tartrate 2 MG CAP.SA PO (09:50)
--- NOTE | 2020-09-19 13:38 | NURSING ---
Luisa from surgery has come to get pt. Patient has left the floor via bed to go to surgery at this time.
--- NOTE | 2020-09-19 15:53 | PCM.DC.URO ---
Discharge Diet: No Restrictions Discharge Activity: Return to Normal Activity, May Not Drive - for 2 days. Additional Activity Instructions:: Please be aware that pain medications may cause nausea. You should typically eat light foods as you take your pain medication. Pain medication may cause constipation, if this is a problem for you, please discuss with your doctor. Allergies/Adverse Reactions: Allergies azithromycin [From Zithromax] Allergy (Verified 09/17/20 12:54) Rash latex Allergy (Verified 09/17/20 12:54) Hives clindamycin [From Cleocin] Adverse Reaction (Verified 09/17/20 12:54) Other Medications to take at Discharge Bupropion HCl [Bupropion Xl] 300 mg PO DAILY 05/19/20 Oxybutynin Chloride [Ditropan Xl] 10 mg PO DAILY 09/13/20 Ciprofloxacin [Cipro] 500 mg PO BID 09/17/20 Hydrocodone Bitart/Apap 5-325 [[place] 5MG-325MG] 1 tab PO Q4H PRN PRN 09/17/20 Melatonin 20 mg PO QHS 09/18/20 Bisacodyl [Dulcolax] 5 mg PO DAILY #14 tablet. 09/19/20 Ciprofloxacin [Cipro] 500 mg PO BID #14 tab 09/19/20 Hydrocodone/Acetaminophen [[place] 5-325 Tablet] 1 each PO Q4H PRN PRN 7 Days #14 tablet 09/19/20 The following prescriptions were given: Ciprofloxacin [Cipro] 500 mg PO BID #14 tab Transmission Status: Pending to [facility]/pharmacy #[id number] Bisacodyl [Dulcolax] 5 mg PO DAILY #14 tablet. Transmission Status: Pending to [facility]/pharmacy #[id number] Hydrocodone/Acetaminophen [[place] 5-325 Tablet] 1 each PO Q4H PRN PRN 7 Days #14 tablet PRN Reason: Pain 1-10 Or Fever Transmission Status: Received by [facility]/pharmacy #[id number] Primary Care Physician: Glenna Méndez PA-C [Primary Care Provider] - Test Results: Test results from this visit will be discussed in further detail at your follow-up appointment, if applicable. Please Follow Up With: Doroteo Aguiar MD When: in 2 weeks, please call to make an appointment.
--- NOTE | 2020-09-19 15:55 | PCM.OPRPT ---
Problem List (1) Kidney stones Status: Chronic Report of Operation Date of Procedure: 09/19/20 Pre-Operative Diagnosis: Right kidney stone status post stent Post-Operative Diagnosis: Same Surgery/Procedure Performed:: Right extracorporeal shockwave lithotripsy Description of Surgical Findings:: 25-year-old female taken back to the operating room at the smooth induction of general anesthesia she was placed supine on the table. We located the stone in the right side he had a stent in place he could clearly see stone next of the stent we then proceeded with shockwave lithotripsy as we broke the stone the stone migrated some we paris after the fragments and at the end of the treatment cycle the stone of broken up completely delivered a total of 3000 shockwaves at a rate of 90/min between 5 to 7 kV. Appear to be complete fragmentation of the stone we left a stent in place patient anesthetic was reversed plan to see her in the office for stent removal. Type of Anesthesia:: General Drains: stent - Admit VTE Documentation VTE Present on Admission: No VTE Mechan Device Prophylaxis: SCD's
--- NOTE | 2020-09-26 07:37 | DS.PCM_ITS ---
Discharge Date and Diagnosis - Problem List Patient Problems: Active and Suspected Problems History of hydrocephalus as a child (Acute) Hydronephrosis with urinary obstruction due to ureteral calculus (Acute) Urinary tract infection (Acute) Sepsis (Acute) Date of Admission: 09/17/20 Date of Discharge: 09/19/20 - Primary Discharge Diagnosis Acute Problems: Active Problems History of hydrocephalus as a child (Acute) Hydronephrosis with urinary obstruction due to ureteral calculus (Acute) Urinary tract infection (Acute) Sepsis (Acute) - Secondary Discharge Diagnosis Chronic Problems: Chronic Problems Spina bifida (Chronic) Kidney stones (Chronic) Hospital Course and Treatment Operations: - - Stent placement, shockwave lithotripsy. Summary of Care Provided: The patient is a 25 year old female who presented with progressive pain to the hospital urine culture was positive with infection at that point CAT scan was done to demonstrate obstructing stone in the proximal right ureter because of the infection she underwent a cystoscopy and stent placement to alleviate the blockage and she was admitted for IV antibiotics to treat her infection. Her white count on admission was elevated. She is a hemodynamically stable during the admission. She was treated I have a antibiotics and eventually defervesced. She then underwent shockwave lithotripsy to break up the stone stent was left in place and then was discharged home after the treatment of the stone she will follow-up in my office to remove the stent. Patient Problems: Active and Suspected Problems History of hydrocephalus as a child (Acute) Hydronephrosis with urinary obstruction due to ureteral calculus (Acute) Urinary tract infection (Acute) Sepsis (Acute) - Physical Exam Vitals/I&O's: Vital Signs Temp Pulse Resp BP Pulse Ox 98.0 F 85 18 140/89 H 95 09/19/20 17:24 09/19/20 17:24 09/19/20 17:24 09/19/20 17:24 09/19/20 17:24 Oxygen Delivery Method Room Air Weight: 73.8 kg Body Mass Index (BMI) 24.7 General: Alert, Oriented x3, Cooperative HEENT: Atraumatic, PERRLA, EOMI, Normocephalic Neck: Supple, No JVD, Negative Carotid Bruits Lungs: Clear to auscultation, Normal air movement Cardiovascular: Regular rate, No murmurs Abdomen: Bowel Sounds Present, Soft, Non Tender Extremities: No edema, Capillary Refill Less than 3 Seconds Skin: No rashes, No breakdown Musculoskeletal: No Tenderness to Palpation of Joints or Extremities Neurological: Cranial nerves II-XII grossly intact Psych/Mental Status: Normal Affect, Appropriate Microbiology Past 72 Hours 09/17/20 15:07 Blood Culture (Wb) - Left Forearm Blood Culture - Final No growth in 5 days. 09/17/20 14:50 Blood Culture (Wb) - Right Hand Blood Culture - Final No growth in 5 days. Discharge Diet: No Restrictions Discharge Activity: Return to Normal Activity, May Not Drive - for 2 days. Additional Activity Instructions:: Please be aware that pain medications may cause nausea. You should typically eat light foods as you take your pain medication. Pain medication may cause constipation, if this is a problem for you, please discuss with your doctor. Home Medications: Medications to take at Discharge Bupropion HCl [Bupropion Xl] 300 mg PO DAILY 05/19/20 Oxybutynin Chloride [Ditropan Xl] 10 mg PO DAILY 09/13/20 Ciprofloxacin [Cipro] 500 mg PO BID 09/17/20 Hydrocodone Bitart/Apap 5-325 [[place] 5MG-325MG] 1 tab PO Q4H PRN PRN 09/17/20 Melatonin 20 mg PO QHS 09/18/20 Bisacodyl [Dulcolax] 5 mg PO DAILY #14 tablet. 09/19/20 Ciprofloxacin [Cipro] 500 mg PO BID #14 tab 09/19/20 Following Prescriptions Were Given to Patient: Ciprofloxacin [Cipro] 500 mg PO BID #14 tab Transmission Status: Received by [facility]/pharmacy #[id number] Bisacodyl [Dulcolax] 5 mg PO DAILY #14 tablet. Transmission Status: Received by [facility]/pharmacy #[id number] Primary Care Physician: Glenna Méndez, PADevanteC [Primary Care Provider] - Please Follow Up With: Doroteo Aguiar MD When: in 2 weeks, please call to make an appointment. Medical Necessity - Tobacco Use Smoking Status: Never smoker Meaningful Use Info Meaningful Use Diagnoses (Choose all that apply): None applicable
== END 2020-09-19 18:01 | disposition home or self-care (01) | DRG 872 ==
LOC: ED 15:42 → MS3 09-18 06:10
PROVIDERS: Admitting Provider Urology; Emergency Provider Emergency Medicine; PCP Family Medicine; Visit Provider Urology
PROC: BT1D1ZZ Fluoroscopy of Right Kidney, Ureter and Bladder using Low Osmolar Contrast (ICD-10-PCS; principal; 2020-09-17 15:50)
PROC: 0TF6XZZ Fragmentation in Right Ureter, External Approach (ICD-10-PCS; CPT 50590; principal; 2020-09-19 15:25)
DX: A41.9 Sepsis, unspecified organism (principal); N13.2 Hydronephrosis with renal and ureteral calculous obstruction; N39.0 Urinary tract infection, site not specified; F32.9 Major depressive disorder, single episode, unspecified; F41.9 Anxiety disorder, unspecified; Z79.899 Other long term (current) drug therapy; Q05.9 Spina bifida, unspecified; Z87.440 Personal history of urinary (tract) infections; Z87.442 Personal history of urinary calculi; Z98.2 Presence of cerebrospinal fluid drainage device; B96.20 Unspecified Escherichia coli [E. coli] as the cause of diseases classified elsewhere
CPT/HCPCS: 36415; 74176; 76000; 80048; 81001; 83605; 84703; 85025; 85027; 87040; 87077; 87086; 87088; 87186; 87426; 99285; J7030; A4216; C1769; C2617; J0696; J2405

== ENCOUNTER → 2020-10-02 08:52 | Outpatient (CLI) | payer BC, SELFPAY ==
[2020-09-19 13:30] VITALS: BMI 24.7
--- NOTE | 2020-10-02 09:20 | RAD_ITS ---
STUDY: X-RAY - ABDOMEN/PELVIS REASON FOR EXAM: Female, 25 years old. FOLLOW UP FOR KIDNEY STONE TECHNIQUE: Single AP view of the abdomen / pelvis. COMPARISON: Comparison is made with prior study dated 09/13/2020. FINDINGS: There is an abundance of fecal material throughout the colon. A right-sided double-J stent catheter is seen. The proximal tip is in the region of the right renal pelvis and the distal tip is at the level of the bladder. Normal soft tissue structures. Normal visualized osseous structures. RAD/Abdomen Single View IMPRESSION: Status post placement of a right-sided double J catheter. Electronically Signed: Jose Stephenson, at 15:21 EST , Service support ,
== END ==
PROVIDERS: PCP Family Medicine; Referring Provider Urology; Visit Provider Urology
DX: N20.0 Calculus of kidney (principal)
CPT/HCPCS: 74018

== ENCOUNTER → 2021-01-25 15:45 | Outpatient (CLI) | payer BC, SELFPAY ==
[2020-09-19 13:30] VITALS: BMI 24.7
--- NOTE | 2021-01-25 15:48 | CT_ITS ---
STUDY: CT ABDOMEN AND PELVIS WITHOUT CONTRAST REASON FOR EXAM: Female, 25 years old. KIDNEY STONE RADIATION DOSAGE (If Supplied By Facility): CTDIvol = ( 8.68 ) mGy, DLP = ( 446.93 ) mGycm TECHNIQUE: Transaxial images were obtained from the dome of the diaphragm to the symphysis pubis without oral contrast, and without intravenous contrast. Sagittal and coronal images were reconstructed. Individualized dose optimization techniques were used for this CT. COMPARISON: CT of abdomen and pelvis dated September 17, 2020 FINDINGS: The visualized lung bases are unremarkable. The visualized portions of the heart are within normal limits. Normal liver. Normal gallbladder and extrahepatic biliary system. Normal spleen. Normal pancreas. Normal bilateral adrenal glands. There are 2 tiny punctate parenchymal calcifications in the upper and lower pole of the right kidney. No hydronephrosis is present. Normal left kidney. Normal visualized stomach. Gastric lap band apparatus reidentified. A significant amount of stool is present throughout the full length of the colon. Normal small intestine. Normal colon. The appendix is visualized and appears normal. Normal abdominal aorta. Normal inferior vena cava. Normal retroperitoneum. Normal urinary bladder. Normal abdominal wall. Normal osseous structures. CT/Abdomen/Pelvis without Cont IMPRESSION: 1. There are 2 tiny punctate parenchymal calcifications in the upper and lower pole of the right kidney. No hydronephrosis is present. 2. A significant amount of stool is present throughout the full length of the colon. Electronically Signed: Madhu Saucedo MD at 16:28 EDT , Service support ,
== END ==
PROVIDERS: PCP Family Medicine
DX: N20.0 Calculus of kidney (principal)
CPT/HCPCS: 74176

== ENCOUNTER → 2021-03-12 10:48 | Outpatient (CLI) | payer BC, SELFPAY ==
[2020-09-19 13:30] VITALS: BMI 24.7
[2021-03-15 12:51] LABS: HPV Reflexed? NOT INDICATED
== END ==
PROVIDERS: PCP Family Medicine; Visit Provider Student in an Organized Health Care Education/Training Program
DX: Z12.4 Encounter for screening for malignant neoplasm of cervix (principal)
CPT/HCPCS: 88175; G0145

== ENCOUNTER → 2021-04-08 16:53 | Outpatient (CLI) | payer BC, SELFPAY ==
[2020-09-19 13:30] VITALS: BMI 24.7
[2021-04-11 06:07] LABS: Chlamydia By Nucleic Acid AMP Negative (Negative)
[2021-04-11 08:44] LABS: Gonococcus By Nucleic Acid AMP Negative (Negative)
== END ==
PROVIDERS: PCP Family Medicine; Visit Provider Student in an Organized Health Care Education/Training Program
DX: Z30.430 Encounter for insertion of intrauterine contraceptive device (principal)
CPT/HCPCS: 87491; 87591

== ENCOUNTER → 2021-04-18 14:48 | Outpatient (CLI) | payer BC, SELFPAY ==
[2020-09-19 13:30] VITALS: BMI 24.7
--- NOTE | 2021-04-18 14:52 | RAD_ITS ---
STUDY: X-RAY - ABDOMEN/PELVIS REASON FOR EXAM: Female, 25 years old. KIDNEY STONES TECHNIQUE: Single AP view of the abdomen / pelvis. COMPARISON: Comparison is made with prior study dated 10/02/2020. FINDINGS: There is an abundance of fecal material throughout the colon. The visualized liver, spleen and kidneys are grossly normal in size and morphology. IUD is seen within the pelvis. Normal visualized osseous structures. RAD/Abdomen Single View IMPRESSION: Large amount of fecal material is seen in the colon. Electronically Signed: Jose Stephenson MD at 15:37 EDT , Service support ,
== END ==
LOC: RAD 14:50
PROVIDERS: PCP Family Medicine; Referring Provider Urology; Visit Provider Urology
DX: N20.0 Calculus of kidney (principal)
CPT/HCPCS: 74018

== ENCOUNTER → 2021-06-24 13:22 | Outpatient (CLI) | payer BC, SELFPAY ==
--- NOTE | 2021-06-24 13:35 | RAD_ITS ---
STUDY: X-RAY - ABDOMEN/PELVIS REASON FOR EXAM: Female, 26 years old. URNIARY CALCULI TECHNIQUE: Single AP view of the abdomen / pelvis. COMPARISON: None. FINDINGS: Lung base is not included in the [id number]. Abundant fecal debris consistent with constipation. There is no demonstrated free abdominal air. The visualized liver, spleen and kidneys are grossly normal in size and morphology. IUD in place. Normal visualized osseous structures. RAD/Abdomen Single View IMPRESSION: Constipation. No distinct calcification seen in the region of the kidneys. Electronically Signed: Carine Campos MD at 2:26 EDT , Service support ,
== END ==
LOC: RAD 13:27
PROVIDERS: PCP Family Medicine; Referring Provider Urology; Visit Provider Urology
DX: Z87.442 Personal history of urinary calculi (principal)
CPT/HCPCS: 74018

== ENCOUNTER → 2021-07-01 07:45 | Outpatient (CLI) | payer BC, SELFPAY ==
--- NOTE | 2021-07-01 07:47 | CT_ITS ---
INDICATION: CALCULUS OF KIDNEY EXAMINATION: CT ABDOMEN AND PELVIS WITHOUT CONTRAST - CT Abdomen And Pelvis W/O Contrast Injection TECHNIQUE: Helically acquired images were obtained of the abdomen and pelvis without oral or IV contrast. A radiation dose optimization technique was used for this scan. IV Contrast dosage and agent: None. Oral contrast: None. COMPARISON: 01/25/2021. FINDINGS: LOWER CHEST: Lung bases are clear. No cardiomegaly or pericardial effusion. LIVER: Homogeneous. No focal mass. GALLBLADDER AND BILIARY TREE: No calcified gallstones. No gallbladder distension or wall edema. No intra- or extrahepatic biliary ductal dilation. PANCREAS: No focal cystic or solid mass. SPLEEN: Normal size without focal cystic or solid mass. ADRENAL GLANDS: No nodules. KIDNEYS AND URETERS: Normal renal size and position. No hydronephrosis. No evidence of renal stones. No evidence of ureteric stones. PERITONEUM: No ascites or free air. No other fluid collection. BOWEL: The appendix is visualized and is unremarkable. A gastric lap band is visualized in position. No stomach or bowel distension. No focal inflammatory change. Abundance of stool in the large bowel. LYMPH NODES: No enlarged mesenteric or retroperitoneal lymph nodes. VESSELS: Aorta is non-dilated. URINARY BLADDER: Unremarkable. REPRODUCTIVE ORGANS: No pelvic masses. Intrauterine conception device visualized in position. ABDOMINAL WALL: No discrete abdominal or pelvic wall hernia. BONES: No lytic or blastic abnormality. CT/Abdomen/Pelvis without Cont IMPRESSION: No evidence of renal or ureteric stones. Abundance of stool in the large bowel. Negative CT abdomen and pelvis without oral or IV contrast. Electronically Signed: Jose A Ivey MD at 10:29 EDT Tel , Service support ,
== END ==
PROVIDERS: PCP Family Medicine; Referring Provider Urology; Visit Provider Urology
DX: N20.0 Calculus of kidney (principal)
CPT/HCPCS: 74176

== ENCOUNTER → 2022-05-06 | Outpatient (CLI) | payer OTHER, SELFPAY ==
--- NOTE | 2022-05-06 15:04 | RAD_ITS ---
EXAM: XR ABDOMEN, 1 VIEW CLINICAL INDICATION: CALCULUS OF KIDNEY TECHNIQUE: Frontal supine view of the abdomen/pelvis. This report was created using [employer] report generation technology. COMPARISON: None. FINDINGS: LOWER THORAX: No acute pathology. GASTROINTESTINAL TRACT: Stool in the colon suggesting constipation. Non-obstructive. No bowel or stomach distention. ORGANS: An intrauterine device is identified in the pelvis and this is likely within the uterus. No organomegaly. No abnormal calcifications. BONES/JOINTS: No acute pathology. SOFT TISSUES: No acute pathology. TUBES, LINES AND DEVICES: Distal [employer] shunt catheter in the left upper quadrant. RAD/Abdomen Single View IMPRESSION: Stool in the colon suggesting constipation. Electronically Signed: Dat Javed MD at 18:05 EDT ,
== END | disposition home or self-care (01) ==
PROVIDERS: Referring Provider Urology; Visit Provider Urology
DX: N20.0 Calculus of kidney (principal)
CPT/HCPCS: 74018